=== PATIENT | female | born 1975 | race Caucasian/White ===

== ENCOUNTER 2017-04-12 11:20 | Inpatient (IN) | payer MEDICAID ==
[2017-04-12] MEDS ORDERED: MAGNESIUM SULFATE 20 GM/500 ML 500 ML IV (11:48)
[2017-04-12] MEDS ORDERED: BETAMET NA PHOS/AC(6 MG/ML) 5ML INJ (11:48)
[2017-04-12] MEDS: LACTATED RINGER'S 1,000 ML IV ×2 (12:22→22:27)
[2017-04-12 12:26] LABS: ADD MAN DIFF? NO
[2017-04-12] MEDS: BETAMET NA PHOS/AC(6 MG/ML) 5ML INJ IM (12:29)
[2017-04-12 12:32] LABS: BASOPHILS % 0.3 % (0.0-2.0); EOSINOPHILS # 0.1 10^3/ul (0.0-0.5); EOSINOPHILS % 0.5 % (0.0-7.0); HEMATOCRIT 34.8 % (37.0-47.0); HEMOGLOBIN 12.1 g/dl (12.0-16.0); LYMPHOCYTES # 1.8 10^3/ul (0.8-2.9); LYMPHOCYTES % 15.1 % (15.0-51.0); MEAN CORPUSCULAR HEMOGLOBIN 32.6 pg (29.0-33.0); MEAN CORPUSCULAR HGB CONC 34.8 g/dl (32.0-37.0); MEAN CORPUSCULAR VOLUME 93.8 fl (82.0-101.0); MEAN PLATELET VOLUME 9.4 fl (7.4-10.4); MONOCYTE # 0.6 10^3/ul (0.3-0.9); MONOCYTES % 5.2 % (0.0-11.0); NEUTROPHIL # 9.2 10^3/ul (1.6-7.5); PLATELET COUNT 259 10^3/UL (140-415); RED BLOOD COUNT 3.71 10^6/ul (4.20-5.40); RED CELL DISTRIBUTION WIDTH 13.1 % (11.5-14.5)
[2017-04-12 12:32] LABS: WHITE BLOOD COUNT 11.8 10^3/ul (4.8-10.8)
[2017-04-12] MEDS: MAGNESIUM SULFATE 4 GM/100 ML 100 ML IV (12:42)
[2017-04-12 12:47] LABS: ADD UMIC NO; ALANINE AMINOTRANSFERASE 30 IU/L (13-69); ALBUMIN 3.2 g/dl (3.3-4.9); ALKALINE PHOSPHATASE 140 IU/L (42-121); ANION GAP 13 (8-16); ASPARTATE AMINO TRANSFERASE 21 IU/L (15-46); BILIRUBIN,INDIRECT 0.3 mg/dl (0-1.1); BILIRUBIN,TOTAL 0.3 mg/dl (0.2-1.3); BLOOD UREA NITROGEN 4 mg/dl (7-20); CALCIUM 9.1 mg/dl (8.4-10.2); CARBON DIOXIDE 22 mmol/L (21-31); CHLORIDE 107 mmol/L (97-110); CREATININE 0.54 mg/dl (0.44-1.00); GLUCOSE 82 mg/dl (70-220); POTASSIUM 4.1 mmol/L (3.5-5.1); SODIUM 138 mmol/L (135-144); TOTAL PROTEIN 6.4 g/dl (6.1-8.1); UR ASCORBIC ACID NEGATIVE (NEGATIVE); UR BILIRUBIN (Dip) NEGATIVE (NEGATIVE); UR BLOOD (Dip) NEGATIVE (NEGATIVE); UR CLARITY CLEAR (CLEAR); UR COLOR STRAW (YELLOW); UR GLUCOSE (Dip) NEGATIVE (NEGATIVE); UR KETONES (Dip) NEGATIVE (NEGATIVE); UR LEUKOCYTE ESTERASE (Dip) NEGATIVE Leu/ul (NEGATIVE); UR NITRITE (Dip) NEGATIVE (NEGATIVE); UR SPECIFIC GRAVITY (Dip) 1.003 (1.003-1.030); UR TOTAL PROTEIN (Dip) NEGATIVE (NEGATIVE); UR UROBILINOGEN (Dip) NEGATIVE (NEGATIVE); URIC ACID 4.7 mg/dl (3.1-7.9)
[2017-04-12 13:00] LABS: INR 0.95; PROTIME 12.8 Sec (11.9-14.9)
[2017-04-12 13:01] LABS: PARTIAL THROMBOPLASTIN TIME 29.7 Sec (25.0-35.0)
[2017-04-12] MEDS: MAGNESIUM SULFATE 20 GM/500 ML 500 ML IV ×2 (13:20→22:35)
[2017-04-12 15:30] LABS: RAPID PLASMA REAGIN NONREACTIVE (NR)
[2017-04-12] MEDS ORDERED: AL HYDROX/MG HYDROX/SIMETH 30 ML CUP PO (17:00)
[2017-04-12] MEDS ORDERED: ONDANSETRON 4 MG INJ IV (17:00)
[2017-04-12] MEDS: ACETAMINOPHEN 325 MG TAB PO (18:33)
[2017-04-12 18:42] LABS: MAGNESIUM 3.8 mg/dl (1.7-2.5)
[2017-04-13] MEDS: LACTATED RINGER'S 1,000 ML IV (04:05)
[2017-04-13] MEDS: ACETAMINOPHEN 325 MG TAB PO (04:58)
[2017-04-13] MEDS: MAGNESIUM SULFATE 20 GM/500 ML 500 ML IV ×2 (09:50→19:25)
[2017-04-13 09:52] LABS: MAGNESIUM 4.4 mg/dl (1.7-2.5)
[2017-04-13] MEDS: SOD CHLORIDE 0.9% 1,000 ML IV (11:28)
[2017-04-13] MEDS: BETAMET NA PHOS/AC(6 MG/ML) 5ML INJ IM (12:30)
[2017-04-13 13:42] LABS: MAGNESIUM 4.5 mg/dl (1.7-2.5)
[2017-04-13 14:37] LABS: COLLECTION PERIOD 24 hrs
[2017-04-13 14:50] LABS: COLLECTION PERIOD 24 hrs; SCRET 0.54 mg/dl (0.44-1.00); VOLUME 4925 ml/24hrs; VOLUME 4925 mls
[2017-04-13 16:58] LABS: CREATININE CLEARANCE 206.3 mls/min (84.0-162.0); CREATININE,URINE RANDOM 32.57 mg/dl (20-320)
[2017-04-13 19:19] LABS: MAGNESIUM 4.4 mg/dl (1.7-2.5)
[2017-04-14] MEDS: SOD CHLORIDE 0.9% 1,000 ML IV ×4 (00:46→22:57)
[2017-04-14 01:40] LABS: MAGNESIUM 4.3 mg/dl (1.7-2.5)
[2017-04-14] MEDS: MAGNESIUM SULFATE 20 GM/500 ML 500 ML IV ×2 (04:23→19:51)
[2017-04-14 14:18] LABS: MAGNESIUM 3.8 mg/dl (1.7-2.5)
[2017-04-14 18:36] LABS: MAGNESIUM 3.4 mg/dl (1.7-2.5)
[2017-04-15] MEDS: MAGNESIUM SULFATE 20 GM/500 ML 500 ML IV (05:35)
[2017-04-15] MEDS: SOD CHLORIDE 0.9% 1,000 ML IV (09:09)
[2017-04-15] MEDS: ACETAMINOPHEN 325 MG TAB PO ×2 (09:14→17:24)
[2017-04-16] MEDS: ACETAMINOPHEN 325 MG TAB PO ×2 (01:19→19:26)
[2017-04-16] MEDS: POLYETHYLENE GLYCOL 17 GM PACKET PO (02:52)
[2017-04-16] MEDS: DOCUSATE SODIUM 100 MG CAP PO ×2 (09:23→20:52)
[2017-04-17] MEDS: ACETAMINOPHEN 325 MG TAB PO (02:38)
[2017-04-17] MEDS: DOCUSATE SODIUM 100 MG CAP PO ×2 (09:11)
[2017-04-17] MEDS ORDERED: BUTORPHANOL 2 MG INJ IV ×2 (13:00)
[2017-04-17] MEDS ORDERED: METHYLERGONOVINE 0.2 MG INJ IM (13:00)
[2017-04-17] MEDS ORDERED: OXYTOCIN 30 UNITS/LR 500 ML IV ×2 (13:00→16:20)
[2017-04-17] MEDS ORDERED: HYDROCODONE/APAP (5/325) TAB PO (13:00)
[2017-04-17] MEDS ORDERED: CARBOPROST 250 MCG INJ IM (13:00)
[2017-04-17] MEDS ORDERED: DINOPROSTONE 10 MG VAG SUPP VAG (13:00)
[2017-04-17] MEDS ORDERED: LIDOCAINE 1% (MPF) 30 ML INJ INJ (13:00)
[2017-04-17] MEDS ORDERED: MISOPROSTOL 200 MCG TAB PR (13:00)
[2017-04-17] MEDS: LACTATED RINGER'S 1,000 ML IV ×2 (13:12→21:36)
[2017-04-17 13:27] LABS: ADD MAN DIFF? NO
[2017-04-17 13:30] LABS: WHITE BLOOD COUNT 14.4 10^3/ul (4.8-10.8)
[2017-04-17 13:30] LABS: BASOPHILS % 0.3 % (0.0-2.0); EOSINOPHILS # 0.1 10^3/ul (0.0-0.5); EOSINOPHILS % 0.6 % (0.0-7.0); HEMATOCRIT 34.1 % (37.0-47.0); HEMOGLOBIN 12.1 g/dl (12.0-16.0); LYMPHOCYTES # 2.2 10^3/ul (0.8-2.9); MEAN CORPUSCULAR HEMOGLOBIN 33.2 pg (29.0-33.0); MEAN CORPUSCULAR HGB CONC 35.5 g/dl (32.0-37.0); MEAN CORPUSCULAR VOLUME 93.7 fl (82.0-101.0); MEAN PLATELET VOLUME 9.5 fl (7.4-10.4); MONOCYTE # 0.8 10^3/ul (0.3-0.9); MONOCYTES % 5.8 % (0.0-11.0); NEUTROPHILS % 76.4 % (39.0-77.0); NUCLEATED RED BLOOD CELLS% 0.1 /100WBC (0.0-0.0); PLATELET COUNT 284 10^3/UL (140-415); RED BLOOD COUNT 3.64 10^6/ul (4.20-5.40); RED CELL DISTRIBUTION WIDTH 13.1 % (11.5-14.5)
[2017-04-17] MEDS: DINOPROSTONE 10 MG VAG SUPP VAG (13:33)
[2017-04-17] MEDS: AMPICILLIN 2 GM/NS (PMX) 100 ML IV (13:33)
[2017-04-17 13:44] LABS: INR 0.91; PROTIME 12.3 Sec (11.9-14.9)
[2017-04-17] MEDS ORDERED: MAGNESIUM SULFATE 4 GM/100 ML 100 ML (14:43)
[2017-04-17] MEDS ORDERED: MAGNESIUM SULFATE 20 GM/500 ML 500 ML IV (14:43)
[2017-04-17] MEDS: MAGNESIUM SULFATE 4 GM/100 ML 100 ML IV (14:54)
[2017-04-17] MEDS ORDERED: LABETALOL HCL 20MG INJ IV (15:00)
[2017-04-17] MEDS: MAGNESIUM SULFATE 20 GM/500 ML 500 ML IV (15:22)
[2017-04-17] MEDS: OXYTOCIN 30 UNITS/LR 500 ML IV (16:36)
[2017-04-17] MEDS: AMPICILLIN 1 GM/NS (PMX) 50 ML IV ×2 (16:42→20:56)
[2017-04-17] MEDS ORDERED: FENTAnyl 2MCG/ML-ROPIV 0.2% 100 ML (21:53)
[2017-04-17] MEDS ORDERED: NALOXONE (0.4 MG/ML) INJ IV (22:30)
[2017-04-18] MEDS: AMPICILLIN 1 GM/NS (PMX) 50 ML IV ×3 (00:48→08:25)
[2017-04-18] MEDS: MAGNESIUM SULFATE 20 GM/500 ML 500 ML IV ×3 (01:13→22:17)
[2017-04-18 01:48] LABS: MAGNESIUM 4.4 mg/dl (1.7-2.5)
[2017-04-18] MEDS: FENTAnyl 2MCG/ML-ROPIV 0.2% 100 ML BAG EPI (04:42)
[2017-04-18 07:21] LABS: MAGNESIUM 4.5 mg/dl (1.7-2.5)
[2017-04-18] MEDS: LACTATED RINGER'S 1,000 ML IV (08:24)
[2017-04-18] MEDS: OXYTOCIN 30 UNITS/LR 500 ML IV ×2 (10:40→17:52)
[2017-04-18] MEDS: IBUPROFEN 600 MG TAB PO ×3 (10:53→23:55)
[2017-04-18] MEDS ORDERED: DIBUCAINE 1% 30 GM OINT PR (12:30)
[2017-04-18] MEDS ORDERED: OXYCODONE/ASPIRIN (4.88/325) TAB PO ×2 (12:30)
[2017-04-18] MEDS ORDERED: HYDROCODONE/APAP (5/325) TAB PO ×2 (12:30)
[2017-04-18] MEDS ORDERED: ONDANSETRON 4 MG INJ IV (12:30)
[2017-04-18] MEDS ORDERED: ACETAMINOPHEN 325 MG TAB PO (12:30)
[2017-04-18 13:32] LABS: MAGNESIUM 4.6 mg/dl (1.7-2.5)
[2017-04-18] MEDS: WITCH HAZEL/GLYCERIN PAD PR (17:25)
[2017-04-18] MEDS: BENZOCAINE 20% 56 ML SPRAY TOP (17:25)
[2017-04-18] MEDS: LANOLIN 7 GM TUBE TOP (17:25)
[2017-04-18 19:25] LABS: MAGNESIUM 4.3 mg/dl (1.7-2.5)
[2017-04-18] MEDS: SENNA/DOCUSATE NA (8.6MG/50MG) TAB PO (21:52)
[2017-04-19 01:03] LABS: MAGNESIUM 3.5 mg/dl (1.7-2.5)
[2017-04-19] MEDS: IBUPROFEN 600 MG TAB PO ×3 (06:19→17:43)
[2017-04-19 07:25] LABS: ADD MAN DIFF? NO
[2017-04-19 07:29] LABS: BASOPHIL # 0.1 10^3/ul (0.0-0.1); BASOPHILS % 0.3 % (0.0-2.0); EOSINOPHILS # 0.1 10^3/ul (0.0-0.5); EOSINOPHILS % 0.6 % (0.0-7.0); HEMATOCRIT 35.9 % (37.0-47.0); HEMOGLOBIN 12.3 g/dl (12.0-16.0); LYMPHOCYTES # 2.4 10^3/ul (0.8-2.9); LYMPHOCYTES % 15.5 % (15.0-51.0); MEAN CORPUSCULAR HEMOGLOBIN 32.1 pg (29.0-33.0); MEAN CORPUSCULAR HGB CONC 34.3 g/dl (32.0-37.0); MEAN CORPUSCULAR VOLUME 93.7 fl (82.0-101.0); MEAN PLATELET VOLUME 9.6 fl (7.4-10.4); MONOCYTE # 0.7 10^3/ul (0.3-0.9); MONOCYTES % 4.2 % (0.0-11.0); NEUTROPHIL # 12.1 10^3/ul (1.6-7.5); NEUTROPHILS % 78.6 % (39.0-77.0); PLATELET COUNT 259 10^3/UL (140-415); RED BLOOD COUNT 3.83 10^6/ul (4.20-5.40); RED CELL DISTRIBUTION WIDTH 13.4 % (11.5-14.5)
[2017-04-19 07:29] LABS: WHITE BLOOD COUNT 15.4 10^3/ul (4.8-10.8)
[2017-04-19 07:56] LABS: MAGNESIUM 3.4 mg/dl (1.7-2.5)
[2017-04-19] MEDS: LACTATED RINGER'S 1,000 ML IV ×2 (08:00)
[2017-04-19] MEDS: SENNA/DOCUSATE NA (8.6MG/50MG) TAB PO ×2 (11:57→21:00)
[2017-04-19] MEDS: WITCH HAZEL/GLYCERIN PAD PR (11:58)
[2017-04-20] MEDS: IBUPROFEN 600 MG TAB PO ×5 (05:16→23:42)
[2017-04-20] MEDS: SENNA/DOCUSATE NA (8.6MG/50MG) TAB PO ×2 (08:49→20:42)
[2017-04-20] MEDS: MEASLES,MUMPS,RUBELLA VACCINE INJ SC* (09:00)
[2017-04-20] MEDS: LABETALOL 100 MG TAB PO ×3 (12:05→23:44)
[2017-04-20] MEDS: NIFEdipine (XL) 30 MG TAB PO (17:25)
[2017-04-20] MEDS: LABETALOL 200 MG TAB PO (20:42)
[2017-04-21] MEDS: IBUPROFEN 600 MG TAB PO ×3 (05:35→18:02)
[2017-04-21] MEDS: LABETALOL 100 MG TAB PO (08:53)
[2017-04-21] MEDS: NIFEdipine (XL) 30 MG TAB PO ×2 (08:54→10:55)
[2017-04-21] MEDS: SENNA/DOCUSATE NA (8.6MG/50MG) TAB PO ×2 (08:54→20:35)
[2017-04-21] MEDS: LABETALOL 200 MG TAB PO (20:36)
[2017-04-22] MEDS: IBUPROFEN 600 MG TAB PO ×3 (00:08→11:39)
[2017-04-22] MEDS: NIFEdipine (XL) 30 MG TAB PO (08:44)
[2017-04-22] MEDS: LABETALOL 200 MG TAB PO (08:44)
[2017-04-22] MEDS: SENNA/DOCUSATE NA (8.6MG/50MG) TAB PO (08:45)
== END 2017-04-22 18:03 | disposition home or self-care (01) | DRG 775 ==
LOC: L-D 11:20 → PP1 18:22
PROC: 10E0XZZ Delivery of Products of Conception, External Approach (ICD-10-PCS; principal; 2017-04-18)
PROC: 0HQ9XZZ Repair Perineum Skin, External Approach (ICD-10-PCS; 2017-04-18)
PROC: 3E033VJ Introduction of Other Hormone into Peripheral Vein, Percutaneous Approach (ICD-10-PCS; 2017-04-18)
DX: O60.14X0 Preterm labor third trimester with preterm delivery third trimester, not applicable or unspecified (principal); O70.0 First degree perineal laceration during delivery; O14.14 Severe pre-eclampsia complicating childbirth; Z3A.34 34 weeks gestation of pregnancy; Z37.0 Single live birth
CPT/HCPCS: 62319; 76815; 76818; 80053; 81003; 82575; 83735; 84156; 84560; 85025; 85610; 85730; 86592; 86850; 86900; 86901; 99464